=== PATIENT | female | born 1995 | race American Indian/Alaskan Native ===

== ENCOUNTER 2018-08-23 20:49 | Inpatient (IN) | payer OTHER ==
[~2018-08-23] VITALS: Ht 157.5 cm; Wt 71.0 kg
--- NOTE | 2018-08-23 22:07 | PR ---
[facility] [address] [place], [place] [address] Signed Progress Notes IP Datetime Report Generated by ANN: 08/23/2018 22:07 PROGRESS NOTES: [id number] Impression: Normal progression of labor; Reassuring heart rate Procedures: Sterile Vag Exam Plan: Continue present management Informed Consent Obtain: Vaginal Delivery VITAL SIGNS: [id number] Vital Signs: Reviewed VS Notable Details: BP within normal range while taken between CTXs EXAM: [id number] Dilatation: 6.0 Effacement: 100 Station: 0 Uterine Contractions: q2 minutes MEMBRANES: [id number] Membrane Status: Intact Comments: Reevaluated pt, and cx noted to be 6cm adn 100 effaced. Pt able to tolerate contractions and vaginal exam better. Inital BPs were elevated, but were taken with contractions. BP between ctxs was normal. Pt denies OLGUIN, RUQ pain, or visual changes. Pt would like to labor in bath. Continue expectant management. Fetus A: [id number] FHR Baseline: 150 Variability: Moderate 6-25bpm Accelerations: 15X15 Decelerations: None FHR Category: Category I Presentation: Vertex Other Presentation: YANELY Comments on Fetus A: No evidence of metabolic acidosis Fetus B: [id number] Signing Physician: Jimbo Barbour DO Copies: ~ *Electronically Signed* 08/23/18 4453 JIMBO BARBOUR DO PATIENT NAME: TOO KHAN PROGRESS NOTE DATE OF : 93 PHYSICIAN: JIMBO BARBOUR DO RPT #: [id number] REPORT IS CONFIDENTIAL AND NOT TO BE RELEASED WITHOUT AUTHORIZATION
--- NOTE | 2018-08-24 00:31 | PR ---
[facility] [address] [facility] [place], [place] [address] Signed Progress Notes IP Datetime Report Generated by CPCelestino: 08/24/2018 00:31 PROGRESS NOTES: [id number] Impression: Normal progression of labor; Reassuring heart rate Procedures: Sterile Vag Exam Plan: Continue present management Informed Consent Obtain: Vaginal Delivery VITAL SIGNS: [id number] Vital Signs: Reviewed VS Notable Details: BP within normal range while taken between CTXs EXAM: [id number] Dilatation: 9.0 Effacement: 100 Station: -1 Uterine Contractions: q2 minutes MEMBRANES: [id number] Membrane Status: Bulging Comments: Strip review. Pt doing well. Painful w/ contractions. FHT reassuring. Consider AROM once 2nd dose of PCN administered. Fetus A: [id number] FHR Baseline: 145 Variability: Moderate 6-25bpm Accelerations: 15X15 Decelerations: None FHR Category: Category I Presentation: Vertex Other Presentation: YANELY Comments on Fetus A: No evidence of metabolic acidosis Fetus B: [id number] Signing Physician: Jimbo Barbour DO Copies: ~ *Electronically Signed* 08/24/18 0031 JIMBO BARBOUR DO PATIENT NAME: TOO KHAN PROGRESS NOTE DATE OF : 93 PHYSICIAN: JIMBO BARBOUR DO RPT #: [id number] REPORT IS CONFIDENTIAL AND NOT TO BE RELEASED WITHOUT AUTHORIZATION
--- NOTE | 2018-08-24 01:47 | PR ---
[facility] [address] [place], [place] [address] Signed Progress Notes IP Datetime Report Generated by ANN: 08/24/2018 01:47 PROGRESS NOTES: [id number] Impression: Normal progression of labor; Reassuring heart rate Procedures: Sterile Vag Exam Plan: Continue present management Informed Consent Obtain: Vaginal Delivery VITAL SIGNS: [id number] Vital Signs: Reviewed VS Notable Details: elevated BPs w/ painful ctxs. No severe range bps EXAM: [id number] Dilatation: 9.5 Effacement: 100 Station: 0 Uterine Contractions: q2-3 minutes MEMBRANES: [id number] Membrane Status: Ruptured Amniotic Fluid Color: Clear ROM Note: SROM Comments: Pt seen and examined. Doing well. Contractions continue to be painful. Discussed AROM, but prior to AROM being performed spontaneous rupture of membranes occured. 2nd dose of PCN administered. Pt w/ continued mildly elevated BPs. Denies OLGUIN, RUQ pain, or visual changes. PreE labs ordered. FHT reassuring. Continue expectant managmenet and anticipate . Fetus A: [id number] FHR Baseline: 145 Variability: Moderate 6-25bpm Accelerations: None Decelerations: None FHR Category: Category I Presentation: Vertex Other Presentation: YANELY Comments on Fetus A: No evidence of metabolic acidosis Fetus B: [id number] Signing Physician: Jimbo Barbour DO Copies: *Electronically Signed* 08/24/18 0147 JIMBO BARBOUR DO PATIENT NAME: TOO KHAN PROGRESS NOTE DATE OF : 93 PHYSICIAN: JIMBO BARBOUR DO RPT #: [id number] REPORT IS CONFIDENTIAL AND NOT TO BE RELEASED WITHOUT AUTHORIZATION [address] [address] Signed ~ *Electronically Signed* 08/24/18 0147 JIMBO BARBOUR DO PATIENT NAME: TOO KHAN PROGRESS NOTE DATE OF : 93 PHYSICIAN: JIMBO BARBOUR DO RPT #: [id number] REPORT IS CONFIDENTIAL AND NOT TO BE RELEASED WITHOUT AUTHORIZATION
--- NOTE | 2018-08-25 08:32 | PR ---
[facility] [address] [place], [place] [address] Signed PP Progress Notes Datetime Report Generated by CPN: 08/25/2018 08:32 SUBJECTIVE: [id number] Pain: Within normal limits Nausea/Vomiting: Denies Flatus: Yes Bowel Movement: Yes Vital Signs: [id number] Vital Signs: Reviewed; Within Normal Limits EXAM: [id number] Cardiovascular: Normal Respiratory: Normal Abdomen/Uterus: Normal Lochia: Normal Vulva/Perineum: Not Done Breasts: Not Done CVA Tenderness: Normal Extremities: Normal Incision: Not Applicable Progress: Normal Exam Comments: Fundus firm U-2 nontender IMPRESSION/PLAN/PROCEDURES: [id number] Impression: Normal progression Plan: Discharge Progress Notes: Pt seen and examined. Doing well. Ambulating, voiding, and tolerating full diet. Pain and lochia minimal. well. No fevers/chills/other concerns. Plan discharge home today. F/U Dr. Pierce. Reviewed discharge instructions in detail. Signing Physician: Jimbo Barbour DO Copies: ~ *Electronically Signed* 08/25/18 0832 JIMBO BARBOUR DO PATIENT NAME: TOO KHAN PROGRESS NOTE DATE OF : 93 PHYSICIAN: JIMBO BARBOUR DO RPT #: [id number] REPORT IS CONFIDENTIAL AND NOT TO BE RELEASED WITHOUT AUTHORIZATION
--- NOTE | 2018-08-26 07:43 | PR ---
[facility] [address] [facility] [place], [place] [address] Signed PP Progress Notes Datetime Report Generated by CPN: 08/26/2018 07:43 SUBJECTIVE: [id number] Pain: Within normal limits Nausea/Vomiting: Denies Flatus: Yes Bowel Movement: Yes Vital Signs: [id number] Vital Signs: Reviewed; Within Normal Limits EXAM: [id number] Cardiovascular: Normal Respiratory: Normal Abdomen/Uterus: Abnormal Lochia: Normal Vulva/Perineum: Not Done Breasts: Not Done CVA Tenderness: Normal Extremities: Normal Incision: Not Applicable Progress: Normal Exam Comments: Fundus firm, NT @ U-1. IMPRESSION/PLAN/PROCEDURES: [id number] Impression: Normal progression Plan: Discharge Progress Notes: Doing well. Will D/C today. Signing Physician: Amparo Tavera MD Copies: ~ *Electronically Signed* 08/26/18 0743 AMPARO TAVERA MD PATIENT NAME: TOO KHAN PROGRESS NOTE DATE OF : 93 PHYSICIAN: AMPARO TAVERA MD RPT #: [id number] REPORT IS CONFIDENTIAL AND NOT TO BE RELEASED WITHOUT AUTHORIZATION
== END 2018-08-26 10:50 | disposition home or self-care (01) | DRG 807 ==
LOC: FBCO 20:49 → FBC 21:17
PROVIDERS: ADMIT Obstetrics & Gynecology
PROC: 10E0XZZ Delivery of Products of Conception, External Approach (ICD-10-PCS; principal; 2018-08-24)
PROC: 0UQGXZZ Repair Vagina, External Approach (ICD-10-PCS; 2018-08-24)
DX: O99.824 Streptococcus B carrier state complicating childbirth (principal); Z37.0 Single live birth; Z3A.38 38 weeks gestation of pregnancy; O99.334 Smoking (tobacco) complicating childbirth; F17.210 Nicotine dependence, cigarettes, uncomplicated; E55.9 Vitamin D deficiency, unspecified; O99.284 Endocrine, nutritional and metabolic diseases complicating childbirth; O71.4 Obstetric high vaginal laceration alone; O28.2 Abnormal cytological finding on antenatal screening of mother; Z79.899 Other long term (current) drug therapy; Z86.19 Personal history of other infectious and parasitic diseases
CPT/HCPCS: 36415; 80053; 82570; 84156; 84550; 85027; J2540; J2590; J7120

== ENCOUNTER 2024-05-06 14:38 | Inpatient (IN) | payer SELFPAY ==
[2024-05-06] MEDS ORDERED: MAGNESIUM HYDROXIDE/AL HYDROX 30 ML CUP PO PRN (15:00)
[2024-05-06] MEDS ORDERED: OXYTOCIN/DEXTROSE 5% 20 UNITS/100 ML BAG IV SCH (15:00)
[2024-05-06] MEDS ORDERED: OXYTOCIN/0.9 % SODIUM CHLORIDE 30 UNITS/500 ML BAG IV SCH (15:00)
[2024-05-06] MEDS ORDERED: LACTATED RINGER'S 1,000 ML IV SCH (15:00)
[2024-05-06] MEDS ORDERED: LACTATED RINGER'S 1,000 ML IV PRN (15:00)
[2024-05-06] MEDS ORDERED: CALCIUM CARBONATE 500 MG CHEW PO PRN (15:00)
[2024-05-06 15:09] LABS: HEMATOCRIT 38.6 % (35.0-50.0); HEMOGLOBIN 12.7 g/dL (12.0-18.0); MCHC 32.9 g/dl (30-36); MCV 88.1 fl (81-99); RBC 4.39 M/ul (4.3-5.7); RDW 15.4 (10.5-15.0)
[2024-05-06 15:41] LABS: ABO O; RH POSITIVE
[2024-05-06 15:42] LABS: ANTIBODY SCREEN NEGATIVE
[2024-05-06] MEDS ORDERED: MAGNESIUM HYDROXIDE 30 ML UDC PO PRN (16:15)
[2024-05-06] MEDS ORDERED: ACETAMINOPHEN 325 MG TAB PO PRN (16:15)
[2024-05-06] MEDS ORDERED: WITCH HAZEL/GLYCERIN 1 EA PAD TOP PRN (16:15)
[2024-05-06] MEDS ORDERED: IBUPROFEN 600 MG TAB PO PRN (16:15)
[2024-05-06] MEDS ORDERED: OXYTOCIN/0.9 % SODIUM CHLORIDE 500 ML IV SCH (16:15)
[2024-05-06] MEDS ORDERED: BENZOCAINE 60 ML AEROSOL TOP PRN (16:15)
[2024-05-06] MEDS ORDERED: HYDROCORTISONE ACETATE 25 MG SUPP PR PRN (16:15)
[2024-05-06 17:17] VITALS: BP 129/80
[2024-05-06 18:40] LABS: AMPHETAMINES, URINE NEGATIVE (NEGATIVE); BARBITURATES, URINE NEGATIVE (NEGATIVE); BENZODIAZEPINE, URINE NEGATIVE (NEGATIVE); BUPRENORPHINE, URINE NEGATIVE (NEGATIVE); CANNABINOID, URINE NEGATIVE (NEGATIVE); COCAINE, URINE NEGATIVE (NEGATIVE); ECSTASY, URINE NEGATIVE (NEGATIVE); FENTANYL, URINE NEGATIVE (NEGATIVE); METHADONE, URINE NEGATIVE (NEGATIVE); OPIATES, URINE NEGATIVE (NEGATIVE); OXYCODONE, URINE NEGATIVE (NEGATIVE); PHENCYCLIDINE, URINE NEGATIVE (NEGATIVE)
[2024-05-06] MEDS ORDERED: SENNOSIDES/DOCUSATE 1 EA TAB PO SCH (21:00)
--- NOTE | 2024-05-07 07:49 | PR ---
[facility] [address] [facility] [place], [place] [address] Signed PP Progress Notes Datetime Report Generated by CPCelestino: 05/07/2024 07:49 SUBJECTIVE: [id number] Pain: Within Normal Limits Nausea/Vomiting: Denies Flatus: Yes Vital Signs: [id number] Vital Signs: Reviewed; Within Normal Limits Cardiovascular: Normal Respiratory: Normal Abdomen/Uterus: Normal Lochia: Normal Vulva/Perineum: Not Done Breasts: Normal CVA Tenderness: Not Done Extremities: Normal Exam Comments: Patient breastfeeeding on my entry to room. Per patient goign well. IMPRESSION/PLAN/PROCEDURES: [id number] Impression: Normal Progression Plan: Continue Present Management; Discharge Procedures: None Progress Notes: Recovering well, minimal lochia. . Pain well controlled. Desires D/C. Signing Physician: Mague Calle MD Copies: ~ *Electronically Signed* 05/07/24 0749 MAGUE CALLE MD PATIENT NAME: TOO KHAN PROGRESS NOTE DATE OF : 93 PHYSICIAN: MAGUE CALLE MD RPT #: [id number] REPORT IS CONFIDENTIAL AND NOT TO BE RELEASED WITHOUT AUTHORIZATION
== END 2024-05-07 16:50 | disposition home or self-care (01) | DRG 806 ==
LOC: FBCO 14:38 → FBC 14:45
PROVIDERS: ADMIT Obstetrics & Gynecology; ATTEND Obstetrics & Gynecology
PROC: 10E0XZZ Delivery of Products of Conception, External Approach (ICD-10-PCS; principal; 2024-05-06)
DX: O62.3 Precipitate labor (principal); O98.32 Other infections with a predominantly sexual mode of transmission complicating childbirth; Z37.0 Single live birth; Z3A.37 37 weeks gestation of pregnancy; A60.09 Herpesviral infection of other urogenital tract
CPT/HCPCS: 36415; 80307; 85027; 86850; 86900; 86901; A9270